=== PATIENT | male | born 1970 | race Caucasian/White ===

== ENCOUNTER 2022-05-09 11:38 | Emergency (ER) | payer BC ==
--- NOTE | 2022-05-09 12:29 | RAD REPORT ---
EXAM DESCRIPTION: CT - [id number] - 05/09/2022 12:18 pm CLINICAL HISTORY: Trauma, head and neck injury. syncope, head injury COMPARISON: No comparisons TECHNIQUE: Axial 5 mm thick images of the head were obtained. Axial 2 mm thick images of the cervical spine were obtained with sagittal and coronal reconstruction images generated and reviewed. All CT scans are performed using dose optimization technique as appropriate and may include automated exposure control or mA/KV adjustment according to patient size. FINDINGS: CT HEAD WITHOUT CONTRAST: No acute hemorrhage, hydrocephalus or extra-axial collection is identified.No areas of brain edema or midline shift. Mucous retention cyst in left maxillary sinus.The calvarium is intact. CT CERVICAL SPINE WITHOUT CONTRAST: No fracture or subluxation.No prevertebral soft tissues swelling is identified. Multilevel degenerati ve changes are present in the spine. IMPRESSION: No acute intracranial or cervical spine findings.
[2022-05-09] MEDS ORDERED: NA CHLORIDE 0.9% 1,000 ML ONE (14:07)
[2022-05-09] MEDS ORDERED: TDAP (DIPHTH,PERTUSS(ACELL),TET VAC) 0.5 ML VIAL IMVAC ONE (14:07)
[2022-05-09 14:09] LABS: Absolute Lymphocytes (CBC) 2.2 K/uL (0.7-4.9); Hematocrit 43.6 % (39.6-49.0); Lymphocytes % 22.6 % (15.3-44.8); MCV 86.4 fL (80-100); MPV 8.3 fL (7.6-11.3); RBC Red Blood Cell Count 5.05 M/uL (4.33-5.43)
[2022-05-09 14:31] LABS: Potassium 4.4 mmol/L (3.5-5.1); Troponin High Sensitivity 4.6 pg/mL (<58.9)
[2022-05-09] MEDS ORDERED: DERMABOND SKIN ADHESIVE TOP ONE (14:53)
[2022-05-09 16:20] VITALS: TEMP 97.6; O2SAT 99
[2022-05-09 16:26] VITALS: BP 130/93
--- NOTE | 2022-05-12 13:12 | EKG ---
Test Date: 2022-05-09 Test Time: 14:10:42 Supply Chain Engineer: TM MEASUREMENT RESULTS: Intervals: Rate: 68 MD: 146 QRSD: 98 QT: 374 QTc: 397 [place]: P: 58 MD: 146 QRS: 73 T: 56 INTERPRETIVE STATEMENTS: Normal sinus rhythm with sinus arrhythmia Normal ECG No previous ECG available for comparison Electronically Signed On 05-12-22 13:07:41 CDT by Rodrigo Bridges
--- NOTE | 2022-05-23 16:23 | ER ---
Nurse's Notes [facility] Name: Jamal Floyd Age: 51 yrs Sex: Male : 1970 Arrival Date: 05/09/2022 Time: 11:39 Bed 14 Private MD: Diagnosis: Syncope;Head Injury Presentation: 05/09 12:22 Chief complaint:. Coronavirus screen: Vaccine status: Patient reports being unvaccinated. Ebola Screen: No symptoms or risks identified at this time. Initial Sepsis Screen: Does the patient meet any 2 criteria? No. Patient's initial sepsis screen is negative. Does the patient have a suspected source of infection? No. Patient's initial sepsis screen is negative. Risk Assessment: Do you want to hurt yourself or someone else? Patient reports no desire to harm self or others. Onset of symptoms was May 09, 2022. 12:22 Method Of Arrival: Ambulatory 12:22 Acuity: ASH 3 12:25 Chief complaint: Patient states: States, " I started having pain last night and ran to the restroom, next thing I know I woke up on the floor. I had fallen and hit my head on a vase." +LOC, unsure if LOC occurred before or after fall. Lacerations to face, pt also reports neck pain, denies dizziness N/V or blurred vision. 12:28 Care prior to arrival: None. Mechanism of Injury: Fall from standing position. Trauma event details: Injury occurred in the [facility], Injury occurred: at home. Injury occurred: May 08, 2022. Triage Assessment: 12:27 General: Appears in no apparent distress. comfortable, Behavior is calm, cooperative, ph appropriate for age. Pain: Complains of pain in face and neck. Neuro: Level of Consciousness is awake, alert, obeys commands, Oriented to person, place, time, situation, Denies weakness blurred vision dizziness. Historical: - Allergies: 12:23 No Known Allergies; ph - PMHx: 12:23 None; ph - Immunization history:: Adult Immunizations unknown. - Social history:: Smoking status: Patient denies any tobacco usage or history of. Primary Survey: 12:27 NO uncontrolled hemorrhage observed. A: The client is awake and alert. The airway is ph patent. Breathing/Chest: Spontaneous respiratory effort, equal unlabored respirations, breath sounds clear bilaterally, regular pattern, symmetrical chest rise and fall. Circulation: No external hemorrhage present. Regular and strong central pulse, skin warm/dry/normal color. Disability Pupils are equal, round, reactive to light and accommodation. Client is alert. Exposure/Environment: Obvious injury(ies) are noted at this time: lacerations to face x 3, not actively bleeding. Vital Signs: 12:22 BP 139 / 88; Pulse 82; Resp 18; Temp 97.6; Pulse Ox 99% on R/A; Weight 86.18 kg; Height ph 5 ft. 8 in. ; 14:07 BP 130 / 93; Pulse 74; Resp 16; Pulse Ox 99% ; hb 12:22 Body Mass Index 28.89 (86.18 kg, 172.72 cm) ph [place] Coma Score: 12:27 Eye Response: spontaneous(4). Motor Response: obeys commands(6). Verbal Response: ph oriented(5). Total: 15. Trauma Score (Adult): 12:27 Eye Response: spontaneous(1); Verbal Response: oriented(1); Motor Response: obeys ph commands(2); Systolic BP: > 89 mm Hg(4); Respiratory Rate: 10 to 29 per min(4); [place] Score: 15; Trauma Score: 12 ED Course: 11:39 Patient arrived in ED. jj6 11:43 Mariano Lei PA is PHCP. jmm 11:43 Kade Campos MD is Attending Physician. jmm 12:19 CT Head C Spine In Process Unspecified. EDMS 12:23 Triage completed. ph 12:23 Arm band placed on Patient placed in waiting room, Patient notified of wait time. ph 13:55 Inserted saline lock: 20 gauge in right antecubital area, using aseptic technique. hb Blood collected. 14:07 Patient has correct armband on for positive identification. hb 14:07 Patient maintains SpO2 saturation greater than 95% on room air. hb 14:12 EKG done, by ED staff. tm3 14:36 Zhanna Hensley, RN is Primary Nurse. hb Administered Medications: 14:06 Drug: NS 0.9% IV 1000 ml Route: IV; Rate: 1 bolus; Site: right antecubital; hb 14:06 Drug: Tetanus-Diphtheria Toxoid IM Adult 0.5 ml {Primer Inspector: [employer] ([employer]). anastacio Exp: 01/17/2023. Lot #: [id number]. } Route: IM; Site: right deltoid; Outcome: 15:33 Discharge ordered by MD. betancur 15:59 Patient left the ED. Signatures: Dispatcher [employer] EDMS Josemanuel Bowman [email or web address] Mariano Lei PA PA jmm Hall, Patricia, RN RN Zhanna Hensley RN RN Dhara Martines [email or web address] Corrections: (The following items were deleted from the chart) 12:27 12:23 Arm band placed on Patient placed in an exam room, ph ph
--- NOTE | 2022-05-23 16:23 | EDPHYS ---
Physician Documentation [facility] Name: Jamal Floyd Age: 51 yrs Sex: Male : 1970 Arrival Date: 05/09/2022 Time: 11:39 Bed 14 Private MD: ED Physician Kade Campos HPI: 05/09 11:57 This 51 yrs old Male presents to ER via Unassigned with complaints of Fall Injury, Head jmm Injury With LOC-Adult, Laceration To Forehead. 11:57 Details of fall: The patient fell from seated position, toilet. Onset: The jmm symptoms/episode began/occurred acutely, last night, at 23:00. Associated injuries: The patient sustained injury to the head. This is a 51 year old male that presents to the ED with complaints of headache, neck pain after a fall which occurred while using the toilet last night around 11 pm. Denies chest pain, sob. Patient states having abdominal pain last night. . Historical: - Allergies: 12:23 No Known Allergies; ph - PMHx: 12:23 None; ph - Immunization history:: Adult Immunizations unknown. - Social history:: Smoking status: Patient denies any tobacco usage or history of. ROS: 11:57 Constitutional: Negative for fever, chills, and weight loss, Cardiovascular: Negative jmm for chest pain, palpitations, and edema, Respiratory: Negative for shortness of breath, cough, wheezing, and pleuritic chest pain. 11:57 Neck: Positive for pain with movement. 11:57 Abdomen/GI: Positive for abdominal pain. 11:57 Neuro: Positive for headache. 11:57 All other systems are negative. Exam: 11:57 Head/Face: atraumatic. Eyes: EOMI, no conjunctival erythema appreciated ENT: Moist jmm Mucus Membranes 11:57 Chest/axilla: Normal chest wall appearance and motion. Cardiovascular: Regular rate and rhythm. No edema appreciated Respiratory: Normal respirations, no respiratory distress appreciated Abdomen/GI: Non distended Back: Normal ROM 11:57 Head/face: superficial lacerations noted to the right and left eyebrow. 11:57 Neck: ROM/movement: pain, that is mild, with any movement. 11:57 Skin: Appearance: Color: normal in color. 11:57 Neuro: Orientation: is normal, Mentation: is normal, Memory: is normal. 11:57 Psych: Behavior/mood is pleasant, cooperative. 14:14 ECG was reviewed by the Attending Physician. [facility] Vital Signs: 12:22 BP 139 / 88; Pulse 82; Resp 18; Temp 97.6; Pulse Ox 99% on R/A; Weight 86.18 kg; Height ph 5 ft. 8 in. ; 14:07 BP 130 / 93; Pulse 74; Resp 16; Pulse Ox 99% ; hb 12:22 Body Mass Index 28.89 (86.18 kg, 172.72 cm) ph [place] Coma Score: 12:27 Eye Response: spontaneous(4). Motor Response: obeys commands(6). Verbal Response: ph oriented(5). Total: 15. Trauma Score (Adult): 12:27 Eye Response: spontaneous(1); Verbal Response: oriented(1); Motor Response: obeys ph commands(2); Systolic BP: > 89 mm Hg(4); Respiratory Rate: 10 to 29 per min(4); [place] Score: 15; Trauma Score: 12 MDM: 11:53 Patient medically screened. [facility] 05/09 11:57 Order name: Basic Metabolic Panel; Complete Time: 14:32 [facility] 05/09 11:57 Order name: CBC with Diff; Complete Time: 14:15 [facility] 05/09 11:57 Order name: Troponin HS; Complete Time: 14:32 [facility] 05/09 11:57 Order name: CT Head C Spine; Complete Time: 12:35 [facility] 05/09 11:57 Order name: EKG; Complete Time: 11:57 [facility] 05/09 11:57 Order name: Cardiac monitoring; Complete Time: 14:06 [facility] 05/09 11:57 Order name: EKG - Nurse/Tech; Complete Time: 14:06 [facility] 05/09 11:57 Order name: IV Saline Lock; Complete Time: 14:06 [facility] 05/09 11:57 Order name: Labs collected and sent; Complete Time: 14:06 [facility] 05/09 11:57 Order name: O2 Per Protocol; Complete Time: 14:06 [facility] 05/09 11:57 Order name: O2 Sat Monitoring; Complete Time: 14:07 [facility] 05/09 14:26 Order name: Wound Care; Complete Time: 14:57 [facility] 05/09 14:37 Order name: Sharmin; Complete Time: 14:49 jmm EC:14 Rate is 68 beats/min. Rhythm is regular. QRS [place] is Normal. MO interval is normal. QRS jmm interval is normal. QT interval is normal. No Q waves. T waves are Normal. No ST changes noted. Reviewed by me. 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 hb Exp: 01/17/2023. Lot #: [id number]. } Route: IM; Site: right deltoid; Disposition: 16:09 Co-signature as Attending Physician, Kade Campos MD I reviewed the patient's care rn provided by the Advanced Practice Provider and agree with the diagnosis and treatment plan. Disposition Summary: 05/09/22 15:33 Discharge Ordered Location: Home jm Condition: Stable jm Diagnosis - Syncope jmm - Head Injury [facility] Followup: [facility] - With: Private Physician - When: 2 - 3 days - Reason: Recheck today's complaints, Continuance of care, Re-evaluation by your physician Discharge Instructions: - Discharge Summary Sheet jmm - Head Injury, Adult jmm - Laceration Care, Adult jmm - Facial Laceration jmm - Syncope jm Forms: - Medication Reconciliation Form jmm - Thank You Letter jmm - Antibiotic Education jmm - Prescription Opioid Use jm Signatures: Dispatcher [employer] EDMariano Venegas PA PA [facility] Kade Campos MD MD rn Hall, Patricia, RN RN Zhanna Hensley RN RN
== END 2022-05-09 15:59 | disposition home or self-care (01) ==
LOC: ER 11:38
DX: R55 Syncope and collapse (principal); S09.90XA Unspecified injury of head, initial encounter; Z23 Encounter for immunization
CPT/HCPCS: 93005; 85025; 80048; 36415; 84484; 70450; 72125; 90471; 99284; J7030